=== PATIENT | male | born 1940 | race Caucasian/White ===

== ENCOUNTER 2023-08-26 14:07 | Emergency (ER) | payer MEDICARE, OTHER ==
[2023-08-26] MEDS ORDERED: Diphtheria,Pertussis(Acell),Tetanus Vaccine 0.5 ML Syringe IM ONE (14:37)
[2023-08-26] MEDS ORDERED: Lidocaine 1% 20 ML MDV INJECT ONE (14:40)
[2023-08-26] MEDS ORDERED: Bupivacaine 0.5% 10 ML SDV INJECT ONE (15:32)
[2023-08-26 17:14] VITALS: BP 152/78; PULSE 74
== END 2023-08-26 17:10 | disposition home or self-care (01) ==
LOC: JD.ED 14:07
DX: S09.90XA Unspecified injury of head, initial encounter (principal); S01.111A Laceration without foreign body of right eyelid and periocular area, initial encounter; S60.519A Abrasion of unspecified hand, initial encounter; Z23 Encounter for immunization; W01.0XXA Fall on same level from slipping, tripping and stumbling without subsequent striking against object, initial encounter; Y92.481 Parking lot as the place of occurrence of the external cause
CPT/HCPCS: 12013; 70450; 90471; 90715; 99284; J3490; 99283